=== PATIENT | female | born 1970 | race Native Hawaiian/Other Pacific Islander ===

== ENCOUNTER 2017-12-04 17:36 | Inpatient (IN) | payer MEDICAID ==
[2017-12-04 17:39] VITALS: BMI 20.3
--- NOTE | 2017-12-04 18:05 | C.PDOC ---
History Of Present Illness 47 y/o F transferred from [facility] for psych admission. Patient reports depression and arrived at [facility] in panic attack. Now states still feeling anxious and has mild headache. Denies fever, chills, chest pain, dyspnea, vomiting. Time Seen by Provider: 12/04/17 17:43 Chief Complaint (Nursing): Psychiatric Evaluation Past Medical History Vital Signs: Last Vital Signs Temp 99.2 F 12/04/17 17:40 Pulse 68 12/04/17 17:40 Resp 18 12/04/17 17:40 BP 105/69 12/04/17 17:40 Pulse Ox 98 12/04/17 17:40 - Medical History PMH: Anxiety, Depression, Post Traumatic Stress Disorder Family History: States: No Known Family Hx - Social History Hx Alcohol Use: Yes Hx Substance Use: No - Immunization History Hx Tetanus Toxoid Vaccination: No Hx Influenza Vaccination: No Hx Pneumococcal Vaccination: No Review Of Systems Except As Marked, All Systems Reviewed And Found Negative. Constitutional: Negative for: Fever Cardiovascular: Negative for: Chest Pain Physical Exam - Physical Exam Additional Physical Exam Comments: Gen: NAD Head: NC/AT Eyes: PERRL ENT: MMM Neck: Supple Chest: No tenderness CV: Regular rate Lungs: CTA b/l Abd: Soft, NT Back: No CVA tenderness Extremities: No edema Skin: No rash Neuro: Alert, no focal deficit ED Course And Treatment O2 Sat by Pulse Oximetry: 98 Disposition - Disposition Disposition: HOSPITALIZED Disposition Time: 17:43 Condition: STABLE - Clinical Impression Clinical Impression: Depression
[2017-12-04] MEDS ORDERED: Hydrocortisone 1% Cream (30 GM) TOP PRN (22:56)
--- NOTE | 2017-12-05 04:10 | PCM.BM ---
<Eladio Alvarado - Last Filed: 12/05/17 04:06> Treatment Plan Problems - Problems identified on initial assessmt Depression Date Initiated: 12/04/17 Time Initiated: 18:35 Assessment reference: NA Status: Active Alcohol Abuse Date Initiated: 12/04/17 Time Initiated: 18:35 Assessment reference: NA Status: Active Treatment assets and liabiliti Patient Assests: physically healthy Patient Liabilities: substance abuse (Alcohol ) - Milieu Protocol Maintain good personal hygiene: daily Encourage regular showers, daily Remind patient to perform daily oral care, every shift Assist patient to perform ADL's Conduct patient checks and document Observation sheet: Q15 minutes Maintain personal safety: every shift Educate patient to report safety concerns to staff, every shift Monitor environment for contraband/sharps Medication safety: Monitor for expected outcome, potential side effects: every shift, Assess barriers to learning: every shift, Assess readiness for medication education: every shift <Viridiana Martinez - Last Filed: 12/07/17 11:14> - Diagnosis (1) Depression Status: Acute Interventions: 12/07/17 11:14 * Assess/adjust medications daily and /or as needed * See patient on an individual basis 7x/week to assess symptoms of depression * Monitor for side effects & effectiveness of medications * (2) Alcohol use disorder, severe, dependence Status: Acute Interventions: 12/07/17 11:14 * Assess 7x/week regarding severity of withdrawal * Educate regarding risks, benefits, side effects and alternatives of medications * Use Motivational Interviewing for abstinence * Use CBT for relapse prevention * Medication management for withdrawal symptoms * Encourage medication assisted treatment * <Rolanda Reese - Last Filed: 12/07/17 15:03> Family Contact Family involvement: Patient does not wish Family/SO involvement Family contact: Patient declines to allow family contact at present - Goals for Treatment Patient goals for treatment: "I want to go to a rehab program." Discharge/Continuing Care - Education Needs Education Needs: Patient Medication, Patient Diagnosis/Disease Process, Patient Coping Skills, Patient Placement options, Patient Community resources - Discharge Discharge Criteria: Free of Suicidal thoughts, Normal sleep pattern, Ability to care for self, No longer exhibiting s/s of withdrawal, Reduction of target symptoms Discharge to:: Substance Abuse Rehab - Treatment Team Participation Discussed with Family/SO: No Was Patient/Family/SO present at Treatment Team Meeting: Yes
--- NOTE | 2017-12-05 12:00 | PCM.PSYCH ---
Initial Psychiatric Evaluation - Initial Psychiatric Evaluation Type of Admission: Voluntary Legal Status: Capacity Chief Complaint (in patient's own words): I was feeling depressed and suicidal.' History of Present Illness and Precipitating Events: This is a 47 years old, Female, who lives with her spouse, came to the ED for depressed mod and suicidal ideation. Patient denies any history of inpatient psychiatric hospitalizations, however, she reports h/o follow up with a psychiatrist in the past. Patient reports that she has been drinking increasing amounts since past few weeks. Patient reports drinking vodka 250-500 ml daily. She reports withdrawal symptoms including sweating, headaches, and anxiety. Pt also reports that, "I feel confused. I had a panic attack a couple of nights ago. The panic attack was caused by feeling to want to hurt myself. I feel worthless, and useless. I stayed with family in [place], and they kicked me out because they said I wasn't working hard enough. I came back to [place] but my Brother doesn't want me in his house either. I hear voices telling me to just kill myself, and end it. I think about suicide everyday, I have been thinking about it for the past two months everyday. Both the drinking and the thinking about suicide happened two months ago, I was very unhappy in [place], it all started when I moved there. I have no medical problems at all. I am healthy, never had a seizure". Patient BAL at [facility] [place] was 87. She reports depressed mood, at times feelings of hopelessness and helplessness and poor sleep and poor appetite. She denies any manic symptoms. She reports AH and paranoia. PMH: None reported Current Medications: Active Medications Generic Name Dose Route Start Last Admin Trade Name Freq PRN Reason Stop Dose Admin Chlordiazepoxide 25 mg 12/04/17 21:17 12/04/17 21:32 Librium PO 25 mg Q6H PRN Administration ETOH withdrawal Diphenhydramine HCl 25 mg 12/04/17 21:17 Benadryl PO Q8H PRN Anxiety Hydrocortisone 1 gm 12/04/17 22:56 Cortizone 1% Cream TOP Q6H PRN Itchiness Trazodone HCl 50 mg 12/04/17 22:00 12/04/17 21:32 Desyrel PO 50 mg HS JAMARI Administration Past Psychiatric History - Past Psychiatric History Previous Treatment History: None Pertinent Medical Hx (Current Medical&Sleep Prob, Allergies): Allergies Allergy/AdvReac Type Severity Reaction Status Date / Time cat dander Allergy Verified 12/04/17 17:39 DUST MITE Allergy Uncoded 12/04/17 17:39 Lorazepam [Ativan] 1 mg PO Q4H 12/04/17 Zolpidem [Ambien] 10 mg PO HS 12/04/17 Review of Systems - Review of Systems All systems: reviewed and no additional remarkable complaints except - Psychiatric Psychiatric: Anxiety, Auditory Hallucinations, Difficulty Concentrating, Paranoia, Suicidal Ideation Mental Status Examination - Personal Presentation Personal Presentation: Looks stated age - Affect Affect: Constricted, Depressed - Motor Activity Motor Activity: Calm - Reliability in Providing Information Reliability in Providing Information: Fair - Speech Speech: Organized - Mood Mood: Depressed, Anxious - Formal Thought Process Formal Thought Process: No Impairment - Hallucinations/Delusions Hallucinations: Auditory Delusions: Persecution - Obsessions/Compulsions Obsessions: No Compulsions: No - Cognitive Functions Orientation: Person, Place, Situation, Time Sensorium: Alert Attention/Concentration: Attentive Abstract Thinking: [place], As evidence by abstract perception of proverbs Estimate of Intelligence: Below average Judgement: Imparied, as evidence by: Poor judgement Memory: Recent intact, as evidence by: Ability to recall events of the day - Risk Risk: Suicidal, Withdrawal, Diminished functioning - Strength & Assets Inventory Strength & Assets Inventory: Family support DSM 5 DX - DSM 5 DSM 5 Diagnosis: Major depressive disorder recurrent severe without psychotic features. Alcohol use disorder severe Alcohol withdrawal - Recommended/Plan of Treatment Treatment Recommendations and Plan of Treatment: Major depressive disorder recurrent severe without psychotic features. CBT Psychoeducation Supportive therapy, group therapy Zoloft 50 mg by mouth daily Gabapentin for augmentation Trazodone for insomnia Hydroxyzine for anxiety Alcohol use disorder severe Alcohol withdrawal CBT Psychoeducation Supportive therapy, individual therapy Start librium taper MVI/Thiamine/Folic Acid
[2017-12-07] MEDS: Multiple Vitamins Tab PO SCH (12:23)
--- NOTE | 2017-12-08 01:03 | PCM.PYCHPN ---
Psychiatric Progress Note - Psychiatric Progress Note Patient seen today, length of contact: 15 min Patient Chief Complaint: I was feeling depressed and suicidal.' Problems Identified/Issues Discussed: Patient seen and evaluated, chart reviewed and discussed with the nurse. Pt reports depressed mood, feelings of hopelessness and helplessness. She remained isolated and withdrawn, and confined to her room. She denies any AVH or any paranoia. Patient is compliant with medications and denies any side effects. Symptoms are improving but pt needs more time to stabilize. Support and psychoeducation given. Medication Change: Yes Medical Record Reviewed: Yes Mental Status Examination - Cognitive Function Orientation: Person, Place, Situation, Time Memory: Intact Attention: WNL Concentration: Poor Association: WNL Fund of Knowledge: Poor - Mood Mood: Depressed, Anxious - Affect Affect: Constricted, Depressed - Speech Speech: Soft - Formal Thought Process Formal Thought Process: No Impairment - Suicidal Ideation Suicidal Ideation: No - Homicidal Ideation Homicidal Ideation: No Goal/Treatment Plan - Goal/Treatment Plan Need for Continued Stay: Severe depression anxiety, Severe functional impairment Progress Toward Problem(s) and Goals/Treatment Plan: Major depressive disorder recurrent severe without psychotic features. CBT Psychoeducation Supportive therapy, group therapy Zoloft 50 mg by mouth daily Gabapentin for augmentation Trazodone for insomnia Hydroxyzine for anxiety Alcohol use disorder severe Alcohol withdrawal CBT Psychoeducation Supportive therapy, individual therapy Start librium taper MVI/Thiamine/Folic Acid - Smoking Cessation Smoking Cessation Initiated: No
--- NOTE | 2017-12-08 01:04 | PCM.PYCHPN ---
Psychiatric Progress Note - Psychiatric Progress Note Patient seen today, length of contact: 15 min Patient Chief Complaint: I was feeling depressed .' Problems Identified/Issues Discussed: Patient seen and evaluated, chart reviewed and discussed with the nurse. She is still reporting withdrawal symptoms. Pt reports depressed mood, feelings of hopelessness and helplessness. She remained isolated and withdrawn, and confined to her room. She denies any AVH or any paranoia. Patient is compliant with medications and denies any side effects. Symptoms are improving but pt needs more time to stabilize. Support and psychoeducation given. Medication Change: Yes Medical Record Reviewed: Yes Mental Status Examination - Cognitive Function Orientation: Person, Place, Situation, Time Memory: Intact Attention: WNL Concentration: Poor Association: WNL Fund of Knowledge: Poor - Mood Mood: Depressed, Anxious - Affect Affect: Constricted, Depressed - Speech Speech: Soft - Formal Thought Process Formal Thought Process: No Impairment - Suicidal Ideation Suicidal Ideation: No - Homicidal Ideation Homicidal Ideation: No Goal/Treatment Plan - Goal/Treatment Plan Need for Continued Stay: Severe depression anxiety, Severe functional impairment Progress Toward Problem(s) and Goals/Treatment Plan: Major depressive disorder recurrent severe without psychotic features. CBT Psychoeducation Supportive therapy, group therapy Zoloft 50 mg by mouth daily Gabapentin for augmentation Trazodone for insomnia Hydroxyzine for anxiety Alcohol use disorder severe Alcohol withdrawal CBT Psychoeducation Supportive therapy, individual therapy Start librium taper MVI/Thiamine/Folic Acid
[2017-12-08] MEDS: Multiple Vitamins Tab PO SCH (10:56)
--- NOTE | 2017-12-08 16:38 | PCM.PYCHPN ---
Psychiatric Progress Note - Psychiatric Progress Note Patient seen today, length of contact: 15 min Patient Chief Complaint: I was feeling depressed and suicidal.' Problems Identified/Issues Discussed: Pt was evaluated at bedside. Chart was reviewed with nurse. Pt this morning reports that she would like to be transferred to the detox floor because she is going through withdrawal. Pt states that she has nausea, dizziness, shakes, insomnia, and hot flashes. On examination, these sxs are not evident. Pt remains quiet but does interact with others on the floor. She is cautious as she moves throughout the floor and is constantly searching for the physician so that she can be transferred. Pt denies S/I, H/I, A/H, V/H. Pt needs more time to stabilize. Medication Change: Yes Medical Record Reviewed: Yes Mental Status Examination - Cognitive Function Orientation: Person, Place, Situation, Time Memory: Intact Attention: WNL Concentration: Poor Association: WNL Fund of Knowledge: Poor - Mood Mood: Depressed, Anxious - Affect Affect: Constricted, Depressed - Speech Speech: Soft - Formal Thought Process Formal Thought Process: No Impairment - Suicidal Ideation Suicidal Ideation: No - Homicidal Ideation Homicidal Ideation: No Goal/Treatment Plan - Goal/Treatment Plan Need for Continued Stay: Severe depression anxiety, Severe functional impairment Progress Toward Problem(s) and Goals/Treatment Plan: Major depressive disorder recurrent severe without psychotic features. CBT Psychoeducation Supportive therapy, group therapy Zoloft 50 mg by mouth daily Gabapentin for augmentation Trazodone for insomnia Hydroxyzine for anxiety Alcohol use disorder severe Alcohol withdrawal CBT Psychoeducation Supportive therapy, individual therapy Start librium taper MVI/Thiamine/Folic Acid
[2017-12-09] MEDS: Multiple Vitamins Tab PO SCH (14:57)
[2017-12-10] MEDS: Multiple Vitamins Tab PO SCH (09:35)
--- NOTE | 2017-12-11 00:52 | PCM.PYCHPN ---
Psychiatric Progress Note - Psychiatric Progress Note Patient seen today, length of contact: 15 min Patient Chief Complaint: I m feeling much better.' Problems Identified/Issues Discussed: Patient seen and evaluated, chart reviewed and discussed with the nurse. Staff reports pt is improving. She reports improvement in her mood and withdrawal symptoms. She denies any AVH or any SI/HI. Patient is compliant with medications and denies any side effects. Symptoms are improving but need more time to stabilize. Support and psychoeducation given. Medication Change: Yes Medical Record Reviewed: Yes Mental Status Examination - Cognitive Function Orientation: Person, Place, Situation, Time Memory: Intact Attention: WNL Concentration: Poor Association: WNL Fund of Knowledge: Poor - Mood Mood: Depressed, Anxious - Affect Affect: Constricted, Depressed - Speech Speech: Soft - Formal Thought Process Formal Thought Process: No Impairment - Suicidal Ideation Suicidal Ideation: No - Homicidal Ideation Homicidal Ideation: No Goal/Treatment Plan - Goal/Treatment Plan Need for Continued Stay: Severe depression anxiety, Severe functional impairment Progress Toward Problem(s) and Goals/Treatment Plan: Major depressive disorder recurrent severe without psychotic features. CBT Psychoeducation Supportive therapy, group therapy Zoloft 100 mg by mouth daily Serquel 100 mg po qhs Remeon 15 mg po qhs Gabapentin for augmentation Trazodone for insomnia Hydroxyzine for anxiety Alcohol use disorder severe Alcohol withdrawal CBT Psychoeducation Supportive therapy, individual therapy librium taper MVI/Thiamine/Folic Acid - Smoking Cessation Smoking Cessation Initiated: No
--- NOTE | 2017-12-11 00:53 | PCM.PYCHPN ---
Psychiatric Progress Note - Psychiatric Progress Note Patient seen today, length of contact: 15 min Patient Chief Complaint: I m feeling little better.' Problems Identified/Issues Discussed: Patient seen and evaluated, chart reviewed and discussed with the nurse. Pt reports some improvement in her depressed mood, and withdrawal symptoms. She remained isolated and withdrawn, and confined to her room. She denies any AVH or any paranoia. Patient is compliant with medications and denies any side effects. Symptoms are improving but pt needs more time to stabilize. Support and psychoeducation given. Medication Change: Yes Medical Record Reviewed: Yes Mental Status Examination - Cognitive Function Orientation: Person, Place, Situation, Time Memory: Intact Attention: WNL Concentration: Poor Association: WNL Fund of Knowledge: Poor - Mood Mood: Depressed, Anxious - Affect Affect: Constricted, Depressed - Speech Speech: Soft - Formal Thought Process Formal Thought Process: No Impairment - Suicidal Ideation Suicidal Ideation: No - Homicidal Ideation Homicidal Ideation: No Goal/Treatment Plan - Goal/Treatment Plan Need for Continued Stay: Severe depression anxiety, Severe functional impairment Progress Toward Problem(s) and Goals/Treatment Plan: Major depressive disorder recurrent severe without psychotic features. CBT Psychoeducation Supportive therapy, group therapy Zoloft 50 mg by mouth daily Gabapentin for augmentation Trazodone for insomnia Hydroxyzine for anxiety Alcohol use disorder severe Alcohol withdrawal CBT Psychoeducation Supportive therapy, individual therapy Start librium taper MVI/Thiamine/Folic Acid
[2017-12-11] MEDS: Multiple Vitamins Tab PO SCH (10:14)
[2017-12-12] MEDS: Multiple Vitamins Tab PO SCH (09:10)
--- NOTE | 2017-12-12 16:22 | PCM.PYCHPN ---
Psychiatric Progress Note - Psychiatric Progress Note Patient seen today, length of contact: 15 min Patient Chief Complaint: I'm feeling much better. Can I go home today. Problems Identified/Issues Discussed: Patient seen, chart reviewed, case discussed with the staff. Issues related to illness and treatment were discussed with the patient and staff. Reported compliant with treatment with no adverse affects. Tolerating treatment very well. Calm and cooperative. Mood reported as good. Affect appropriate. Aftercare discussed with the patient. Patient was awake, alert and oriented 3. Denied any delusions, auditory or visual hallucinations, suicidal ideations or homicidal ideations at the time of evaluation. Medical Problems: None reported Diagnostic Results: Reviewed DSM 5 Symptoms Update: Some improvement with treatment Medication Change: No Medical Record Reviewed: Yes Mental Status Examination - Cognitive Function Orientation: Person, Place, Situation, Time Memory: Intact Attention: WNL Concentration: WNL Association: [facility] Fund of Knowledge: [facility] Decription of patient's judgement and insights: Fair - Mood Mood: Depressed (Much less than before) - Affect Affect: Depressed - Speech Speech: Soft - Formal Thought Process Formal Thought Process: No Impairment Psychotic Thoughts and Behaviors: None - Suicidal Ideation Suicidal Ideation: No - Homicidal Ideation Homicidal Ideation: No Goal/Treatment Plan - Goal/Treatment Plan Need for Continued Stay: Remain at risks for inpatient hospitalization, Discharge may exacerbated symptoms, Severe functional impairment Progress Toward Problem(s) and Goals/Treatment Plan: Patient education. Supportive therapy. Continue treatment as before. Estimated Date of D/C: 12/14/17 - Smoking Cessation Smoking Cessation Initiated: Yes
[2017-12-13 06:56] VITALS: O2SAT 98
[2017-12-13] MEDS: Multiple Vitamins Tab PO SCH (10:12)
--- NOTE | 2017-12-13 15:57 | PCM.PYCHPN ---
Psychiatric Progress Note - Psychiatric Progress Note Patient seen today, length of contact: 15 min Patient Chief Complaint: I'm feeling much better. Problems Identified/Issues Discussed: Patient seen, chart reviewed, case discussed with the staff. Issues related to illness and treatment were discussed with the patient and staff. Reported compliant with treatment with no adverse affects. Tolerating treatment very well. Calm and cooperative. Mood reported as good. Affect appropriate. Aftercare discussed with the patient. Patient was awake, alert and oriented 3. Discussed with patient about unit rules. Patient agreed. Denied any delusions, auditory or visual hallucinations, suicidal ideations or homicidal ideations at the time of evaluation. Medical Problems: None reported Diagnostic Results: Reviewed DSM 5 Symptoms Update: Improving with treatment. Medication Change: No Medical Record Reviewed: Yes Mental Status Examination - Cognitive Function Orientation: Person, Place, Situation, Time Memory: Intact Attention: WNL Concentration: WNL Association: [facility] Fund of Knowledge: [facility] Decription of patient's judgement and insights: Fair - Mood Mood: Depressed (Much less than before) - Affect Affect: Depressed - Speech Speech: Soft - Formal Thought Process Formal Thought Process: No Impairment Psychotic Thoughts and Behaviors: None - Suicidal Ideation Suicidal Ideation: No - Homicidal Ideation Homicidal Ideation: No Goal/Treatment Plan - Goal/Treatment Plan Need for Continued Stay: Remain at risks for inpatient hospitalization, Discharge may exacerbated symptoms, Severe functional impairment Progress Toward Problem(s) and Goals/Treatment Plan: Patient education. Supportive therapy. Continue treatment as before. Estimated Date of D/C: 12/14/17 - Smoking Cessation Smoking Cessation Initiated: Yes
--- NOTE | 2017-12-13 22:46 | PCM.PYCHPN ---
Psychiatric Progress Note - Psychiatric Progress Note Patient seen today, length of contact: 15 min Patient Chief Complaint: I m feeling much better.' Problems Identified/Issues Discussed: Patient seen and evaluated, chart reviewed and discussed with the nurse. Staff reports pt is improving. She reports improvement in her mood and withdrawal symptoms. She denies any AVH or any SI/HI. Patient is compliant with medications and denies any side effects. Symptoms are improving but need more time to stabilize. Support and psychoeducation given. Medication Change: No Medical Record Reviewed: Yes Mental Status Examination - Cognitive Function Orientation: Person, Place, Situation, Time Memory: Intact Attention: WNL Concentration: WNL Association: WNL Fund of Knowledge: WNL - Mood Mood: Depressed (Much less than before) - Affect Affect: Depressed - Speech Speech: Soft - Formal Thought Process Formal Thought Process: No Impairment - Suicidal Ideation Suicidal Ideation: No - Homicidal Ideation Homicidal Ideation: No Goal/Treatment Plan - Goal/Treatment Plan Need for Continued Stay: Remain at risks for inpatient hospitalization, Discharge may exacerbated symptoms, Severe functional impairment Progress Toward Problem(s) and Goals/Treatment Plan: Major depressive disorder recurrent severe without psychotic features. CBT Psychoeducation Supportive therapy, group therapy Zoloft 100 mg by mouth daily Serquel 100 mg po qhs Remeon 15 mg po qhs Gabapentin for augmentation Trazodone for insomnia Hydroxyzine for anxiety Alcohol use disorder severe Alcohol withdrawal CBT Psychoeducation Supportive therapy, individual therapy librium taper MVI/Thiamine/Folic Acid Estimated Date of D/C: 12/14/17
[2017-12-14 06:28] VITALS: BP 100/70; PULSE 77; RESP 20; TEMP 98.4
[2017-12-14] MEDS: Multiple Vitamins Tab PO SCH (09:29)
--- NOTE | 2017-12-14 10:10 | PCM.PYCHDC ---
Mental Status Examination - Mental Status Examination Orientation: Person, Place, Situation, Time Memory: Intact Mood: Neutral Affect: Constricted Speech: Soft Attention: WNL Concentration: WNL Association: WNL Fund of Knowledge: WNL Formal Thought Process: No Impairment Description of patient's judgement and insight: good, fair Psychotic Thoughts and Behaviors: denies any AVH Suicidal Ideation: No Current Homicidal Ideation?: No Discharge Summary - Discharge Note Reason for Hospitalization: This is a 47 years old, Female, who lives with her spouse, came to the ED for depressed mod and suicidal ideation. Patient denies any history of inpatient psychiatric hospitalizations, however, she reports h/o follow up with a psychiatrist in the past. Patient reports that she has been drinking increasing amounts since past few weeks. Patient reports drinking vodka 250-500 ml daily. She reports withdrawal symptoms including sweating, headaches, and anxiety. Pt also reports that, "I feel confused. I had a panic attack a couple of nights ago. The panic attack was caused by feeling to want to hurt myself. I feel worthless, and useless. I stayed with family in [place], and they kicked me out because they said I wasn't working hard enough. I came back to [place] but my Brother doesn't want me in his house either. I hear voices telling me to just kill myself, and end it. I think about suicide everyday, I have been thinking about it for the past two months everyday. Both the drinking and the thinking about suicide happened two months ago, I was very unhappy in [place], it all started when I moved there. I have no medical problems at all. I am healthy, never had a seizure". Patient BAL at [facility] was 87. She reports depressed mood, at times feelings of hopelessness and helplessness and poor sleep and poor appetite. She denies any manic symptoms. She reports AH and paranoia. Consultations:: List each consultation separately and include: 1. Reason for request. 2. Findings. 3. Follow-up Summary of Hospital Course include:: 1. Description of specific treatment plan utilized for patients during their course of treatmen. 2. Summarize the time- course for resolution of acute symptoms and/or regressed behaviors. 3. Describe issues identified and worked on during hospitalization. 4. Describe medication utilized. 5. Describe medical problems identified and treated. 6. Reassessment of suicide risk Summary of Hospital Course: During the course of her stay, patient (pt) started progressively improving and no longer remained irritable, depressed, and suicidal. Her mood and anxiety were improved and she started attending groups and meetings and started socializing. Patient denied any feelings of hopelessness, helplessness, and worthlessness, denied any problem with the sleep or appetite, denied suicidal ideation or homicidal ideation. Pt denied any auditory or visual hallucinations. She denied any withdrawal symptoms. Pt was treated with medications along with supportive therapy, milieu therapy and group therapy. Some changes were made in her current medications and patient was discharged on following medications. She tolerated these medications very well and denied any side effects. - Diagnosis (1) Depression Status: Acute (2) Alcohol use disorder, severe, dependence Status: Acute - Final Diagnosis (DSM 5) Condition upon Discharge: STABLE DSM 5: Major depressive disorder recurrent severe without psychotic features. Alcohol use disorder severe Alcohol withdrawal Disposition: HOME/ ROUTINE Follow-up Treatment Plan: Followup: She was discharged to the [facility]. Education: Pt was educated and counseled about the risks and benefits of taking and not taking medications. Pt was educated and counseled about the risks of drinking and abusing drugs. Pt was educated and counseled to go to the ER or call 911 if pt develop suicidal ideation or homicidal ideation, worsening of symptoms or severe side effects of the meds. Prescriptions/Medication Reconciliation: Gabapentin [Neurontin] 300 mg PO BID #60 cap Mirtazapine [Remeron] 15 mg PO HS #60 tab QUEtiapine [SEROquel] 50 mg PO HS #30 tab Sertraline [Zoloft] 100 mg PO DAILY #30 tab - Smoking Cessation Smoking Cessation Medication prescribed: No - Antipsychotic Medications Pt discharged on 2 or more routine antipsychotic medications: No
== END 2017-12-14 10:40 | disposition home or self-care (01) | DRG 885 ==
LOC: C.ER 17:36 → C.5E 17:43
PROVIDERS: ADMIT Psychiatry & Neurology Psychiatry; ATTEND Psychiatry & Neurology Psychiatry
PROC: GZ56ZZZ Individual Psychotherapy, Supportive (ICD-10-PCS; principal; 2017-12-04)
DX: F33.2 Major depressive disorder, recurrent severe without psychotic features (principal); R45.851 Suicidal ideations; F10.239 Alcohol dependence with withdrawal, unspecified; F41.0 Panic disorder [episodic paroxysmal anxiety]; G47.00 Insomnia, unspecified; F43.10 Post-traumatic stress disorder, unspecified; N95.1 Menopausal and female climacteric states; F22 Delusional disorders

== ENCOUNTER 2017-12-16 02:45 | Inpatient (IN) | payer MEDICAID ==
[2017-12-16 02:45] VITALS: BMI 20.3
--- NOTE | 2017-12-16 03:19 | C.PDOC ---
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 Denies any suicidal or homicidal ideation Time Seen by Provider: 12/16/17 03:18 Chief Complaint (Nursing): Substance Abuse History/Exam Limitations: no limitations Onset/Duration Of Symptoms: Hrs Current Symptoms Are (Timing): Still Present Suicide/Self Injury Attempted (Context): Other Modifying Factor(s): Alcohol Severity: Moderate Pain Scale Rating Of: 4 Associated Symptoms: denies: Anxiety Involuntary Hold By: None Recent travel outside of the [place]: No Additional History Per: Patient Past Medical History Reviewed: Historical Data, Nursing Documentation, Vital Signs Vital Signs: Last Vital Signs Temp 98.5 F 12/16/17 03:02 Pulse 87 12/16/17 03:02 Resp 14 12/16/17 03:02 BP 113/79 12/16/17 03:02 Pulse Ox 96 12/16/17 03:22 - Medical History PMH: Anxiety, Depression, Post Traumatic Stress Disorder - [facility] INDIVIDUAL PSYCHOTHERAPY, SUPPORTIVE (12/04/17) Family History: States: No Known Family Hx - Social History Hx Alcohol Use: Yes Hx Substance Use: Yes - Immunization History Hx Tetanus Toxoid Vaccination: No Hx Influenza Vaccination: No Hx Pneumococcal Vaccination: No Review Of Systems Constitutional: Negative for: Fever, Chills ENT: Negative for: Throat Pain Cardiovascular: Negative for: Chest Pain Respiratory: Negative for: Shortness of Breath Gastrointestinal: Negative for: Abdominal Pain Genitourinary: Negative for: Dysuria Musculoskeletal: Negative for: Back Pain Skin: Negative for: Rash Neurological: Negative for: Weakness Psych: Negative for: Anxiety Physical Exam - Physical Exam Appears: Non-toxic, No Acute Distress Skin: Warm, Dry Head: Normacephalic Eye(s): bilateral: Normal Inspection Oral Mucosa: Moist Neck: Supple Chest: Symmetrical Cardiovascular: Rhythm Regular Respiratory: No Rales, No Rhonchi, No Wheezing Gastrointestinal/Abdominal: Soft, No Tenderness Back: Normal Inspection Extremity: Normal ROM Extremity: Bilateral: Atraumatic Neurological/Psych: Oriented x3 Gait: Steady ED Course And Treatment - Laboratory Results Result Diagrams: 12/16/17 03:53 12/16/17 03:53 O2 Sat by Pulse Oximetry: 96 Pulse Ox Interpretation: Normal Disposition Discussed With : Juan Carlos Stephens Comment: accepted the pt on his service and took over the care at 5:44 AM Doctor Will See Patient In The: Hospital Counseled Patient/Family Regarding: Studies Performed, Diagnosis - Disposition Disposition: HOSPITALIZED Disposition Time: 03:18 Condition: FAIR Forms: [facility] ([place]) - POA Present On Arrival: None - Clinical Impression Clinical Impression: Depression, Alcohol use disorder, severe, dependence Decision To Admit - Pt Status Changed To: Hospital Disposition Of: Inpatient - Admit Certification Admit to Inpatient:: After my assessment, the patient will require hospitalization for at least two midnights. This is because of the severity of symptoms shown, intensity of services needed, and/or the medical risk in this patient being treated as an outpatient. - InPatient: Physician Admission Certification: I certify that this patient requires 2 or more midnights of care for the following reason:: After my assessment, the patient will require hospitalization for at least two midnights. This is because of the severity of symptoms shown, intensity of services needed, and/or the medical risk in this patient being treated as an outpatient. - . Bed Request Type: Psychiatry Admitting Physician: Juan Carlos Stephens Patient Diagnosis: Depression, Alcohol use disorder, severe, dependence
[2017-12-16 03:56] LABS: HCG,QUALITATIVE URINE NEGATIVE (NEGATIVE)
[2017-12-16 03:57] LABS: SQUAMOUS EPITHIAL 1 /hpf (0-5); URINE BILIRUBIN NEGATIVE (NEGATIVE); URINE BLOOD NEGATIVE (NEGATIVE); URINE CLARITY Clear (Clear); URINE COLOR Yellow (YELLOW); URINE GLUCOSE (UA) NORMAL (Normal); URINE LEUKOCYTE ESTERASE 1+ Leu/uL (Negative); URINE PROTEIN NEGATIVE (NEGATIVE); URINE UROBILINOGEN NORMAL mg/dL (0.2-1.0)
[2017-12-16 03:58] LABS: BASO # 0.1 K/uL (0.0-0.2); BASO % 0.8 % (0.0-2.0); EOS # 0.1 K/uL (0.0-0.7); HEMOGLOBIN 12.5 g/dL (11.0-16.0); LYMPH # 2.5 K/uL (1.0-4.3); LYMPH % 36.2 % (20.0-40.0); MEAN CELL VOLUME 89.9 fL (81.0-99.0); MEAN CORPUSCULAR HEMOGLOBIN 31.5 pg (27.0-31.0); MEAN CORPUSCULAR HGB CONC 35.1 g/dL (33.0-37.0); MONO # 0.7 K/uL (0.0-0.8); MONO % 10.4 % (0.0-10.0); NEUT # 3.5 K/uL (1.8-7.0); NEUT % 50.6 % (50.0-75.0); RBC 3.95 Mil/uL (3.80-5.20); RED CELL DISTRIBUTION WIDTH 13.5 % (11.5-14.5); WHITE BLOOD COUNT 6.9 K/uL (4.8-10.8)
[2017-12-16 04:22] LABS: ALB/GLOB RATIO 1.4 (1.0-2.1); ALBUMIN 4.2 g/dL (3.5-5.0); ALT/SGPT 64 U/L (9-52); AST/SGOT 48 U/L (14-36); BLOOD UREA NITROGEN 12 mg/dL (7-17); CALCIUM 8.5 mg/dl (8.6-10.4); GFR AFRICAN-AMERICAN > 60; GFR NON-AFRICAN AMERICAN > 60
[2017-12-16 05:33] LABS: BARBITURATES, UR NEGATIVE (NEGATIVE); OPIATES, UR NEGATIVE (NEGATIVE); PHENCYCLIDINE, UR NEGATIVE (NEGATIVE)
[2017-12-16 06:53] LABS: BENZODIAZEPINES, UR POSITIVE (NEGATIVE)
--- NOTE | 2017-12-16 12:35 | PCM.BM ---
<Christi Mills - Last Filed: 12/16/17 12:33> Treatment Plan Problems - Problems identified on initial assessmt Suicidal Ideations Date Initiated: 12/16/17 Time Initiated: 12:34 Assessment reference: NA ETOH Abuse Date Initiated: 12/16/17 Time Initiated: 12:34 Assessment reference: NA Status: Active Treatment assets and liabiliti Patient Assests: cooperative, self-reliant, physically healthy, negotiates basic needs, cognitively intact Patient Liabilities: live alone, financial problems, poor support system, relationship conflicts, substance abuse - Milieu Protocol Maintain good personal hygiene: daily Encourage regular showers, daily Remind patient to perform daily oral care, daily Assist patient to perform ADL's Maintain personal safety: every shift Educate patient to report safety concerns to staff, every shift Monitor environment for contraband/sharps Medication safety: Monitor for expected outcome, potential side effects: every shift, Assess barriers to learning: every shift, Assess readiness for medication education: every shift <Seema Bustillo - Last Filed: 12/18/17 11:16> Family Contact Family involvement: Family/SO is involved Family contact: Patient declines to allow family contact at present - Goals for Treatment Patient goals for treatment: "I want to go home." Discharge/Continuing Care - Education Needs Education Needs: Patient Medication, Patient Coping Skills - Discharge Discharge Criteria: Tolerates medication w/o severe side effects, Reduction of target symptoms Discharge to:: Home, With Family - Treatment Team Participation Discussed with Family/SO: No Was Patient/Family/SO present at Treatment Team Meeting: Yes <Douglas Garcia - Last Filed: 12/19/17 10:14> - Diagnosis (1) Alcohol use disorder, severe, dependence Status: Acute Interventions: 12/19/17 10:13 * Assess 7x/week regarding severity of withdrawal * Educate regarding risks, benefits, side effects and alternatives of medications * Use Motivational Interviewing for abstinence * Use CBT for relapse prevention * Medication management for withdrawal symptoms * Encourage medication assisted treatment * (2) Depression Status: Acute Interventions: 12/19/17 10:13 * Assess/adjust medications daily and /or as needed * See patient on an individual basis 7x/week to assess symptoms of depression * Monitor for side effects & effectiveness of medications *
--- NOTE | 2017-12-17 10:52 | PCM.PSYCH ---
Initial Psychiatric Evaluation - Initial Psychiatric Evaluation Type of Admission: Voluntary Legal Status: Capacity Chief Complaint (in patient's own words): I relapsed on drinking.' History of Present Illness and Precipitating Events: This is 47 yo female of [place] decent came to the ED with depressed mood and suicidal ideation. Write is familiar with the patient. She was just discharge from almost 2-3 days ago. As per the patient she was relapsed on drinking soon after the discharge. Pt's initial IOJ=249. Pt currently reports that she is drinking ETOH everyday. She reports, 'I feel like I'm out of control, and I would like to stop ;" Pt relapsed back onto ETOH the same day she was discharged from [facility] (); Pt has been consuming approximately "a bottle" of ETOH daily; Yesterday, Pt consumed "a 6pack and a bottle of wine"; Pt has been consuming ETOH since age 21. Pt also reported having plans to either run into on-coming traffic, jump from a bridge, or be struck by an on-coming train. Pt would also deny experiencing any recent command "voices"; Nevertheless, Pt did admit to on- going symptoms of depression, which she described as: "Mood swings;" They go up and down (from "euphoria/happiness" to "sadness/insecurity/a little angry")"; Pt also reported recent symptoms of anhedonia, stating: "I haven't been doing too much" and sleep disturbance; Pt denied having a prior hx of suicide attempts ; Pt admits she did not fill the prescription she received upon discharge from [address] [place] [address]; Pt also reported having an outpt appointment scheduled for "the middle of January"; Pt currently lives with her brother and his family; It should be noted: Pt did admit to having a gambling addiction, but refused to disclose any details regarding same. Current Medications: Active Medications Generic Name Dose Route Start Last Admin Trade Name Dorothea PRN Reason Stop Dose Admin Gabapentin 300 mg 12/17/17 10:00 12/17/17 10:03 Neurontin PO 300 mg BID JAMARI Administration Mirtazapine 15 mg 12/16/17 22:00 12/16/17 21:52 Remeron PO 15 mg HS JAMARI Administration Pneumococcal Polyvalent Vaccine 0.5 ml 12/19/17 15:00 Pneumovax 23 Vaccine IM 12/19/17 15:01 .ONCE ONE Quetiapine Fumarate 25 mg 12/16/17 22:00 12/16/17 21:52 Seroquel PO 25 mg HS JAMARI Administration Past Psychiatric History - Past Psychiatric History Previous Treatment History: Inpatient Pertinent Medical Hx (Current Medical&Sleep Prob, Allergies): Allergies Allergy/AdvReac Type Severity Reaction Status Date / Time cat dander Allergy Verified 12/04/17 17:39 DUST MITE Allergy Uncoded 12/04/17 17:39 Lorazepam [Ativan] 1 mg PO Q8H 12/04/17 Zolpidem [Ambien] 10 mg PO HS 12/04/17 Gabapentin [Neurontin] 300 mg PO BID #60 cap 12/14/17 Mirtazapine [Remeron] 15 mg PO HS #60 tab 12/14/17 QUEtiapine [SEROquel] 50 mg PO HS #30 tab 12/14/17 Sertraline [Zoloft] 100 mg PO DAILY #30 tab 12/14/17 Review of Systems - Review of Systems All systems: reviewed and no additional remarkable complaints except - Psychiatric Psychiatric: Anxiety, Auditory Hallucinations, Irritability, Suicidal Ideation Mental Status Examination - Personal Presentation Personal Presentation: Looks stated age - Affect Affect: Constricted, Depressed - Motor Activity Motor Activity: Calm - Reliability in Providing Information Reliability in Providing Information: Fair - Speech Speech: Organized - Mood Mood: Depressed, Anxious - Formal Thought Process Formal Thought Process: No Impairment - Obsessions/Compulsions Obsessions: No Compulsions: No - Cognitive Functions Orientation: Person, Place, Situation, Time Sensorium: Alert Attention/Concentration: Attentive Abstract Thinking: [place] Estimate of Intelligence: Below average Judgement: Imparied, as evidence by: Poor judgement, Imparied, as evidence by: Lack of insight into illness - Risk Risk: Suicidal, Withdrawal, Diminished functioning - Strength & Assets Inventory Strength & Assets Inventory: Family support DSM 5 DX - DSM 5 DSM 5 Diagnosis: Major depressive disorder recurrent severe with psychotic features Alcohol use disorder severe Alcohol withdrawal - Recommended/Plan of Treatment Treatment Recommendations and Plan of Treatment: Major depressive disorder recurrent severe with psychotic features Alcohol use disorder severe Alcohol withdrawal CBT Psychoeducation Supportive therapy, group therapy Seroque 25 mg PO QHS Mirtazapine 30 mg po qhs Gabapentin for augmentation Hydroxyzine for anxiety librium prn MVI/Thiamine/Folic Acid
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
[2017-12-19] MEDS ORDERED: Pneumococcal 23-Valent Vaccine IM ONE (15:00)
--- NOTE | 2017-12-19 21:25 | PCM.PYCHPN ---
Psychiatric Progress Note - Psychiatric Progress Note Patient seen today, length of contact: 15 MIN Patient Chief Complaint: I'M ANXIOUS Problems Identified/Issues Discussed: PT SEEN AND EXAMINED DISCUSSED WITH STAFF DISCUSSED WITH PT CAUSES OF ANXIETY AND HOW IT IS DIFFICULT TO SEPARATE DEPRESSION FROM ANXIETY AT TIMES Medical Problems: NONE NOTED OR REPORTED Diagnostic Results: REVIEWED Medication Change: Yes (INCREASE NEURONTIN) Medical Record Reviewed: Yes Mental Status Examination - Cognitive Function Orientation: Place, Situation Memory: Intact Attention: WNL Association: WNL Fund of Knowledge: WNL - Mood Mood: Depressed, Anxious - Affect Affect: Blunted, Depressed - Speech Speech: Appropriate - Formal Thought Process Formal Thought Process: No Impairment - Suicidal Ideation Suicidal Ideation: No - Homicidal Ideation Homicidal Ideation: No Goal/Treatment Plan - Goal/Treatment Plan Need for Continued Stay: Discharge may exacerbated symptoms, Severe functional impairment Progress Toward Problem(s) and Goals/Treatment Plan: MDD REMERON NEURONTIN GROUP [facility] RECREATIONAL THERAPY SUPPORTIVE PSYCHOTHERAPY Estimated Date of D/C: 12/21/17 - Smoking Cessation Smoking Cessation Initiated: No
[2017-12-20 06:30] VITALS: RESP 20
--- NOTE | 2017-12-21 00:26 | PCM.PYCHPN ---
Psychiatric Progress Note - Psychiatric Progress Note Patient seen today, length of contact: 15 MIN Patient Chief Complaint: I AM ANXIOUS ABOUT THE FUTURE! Problems Identified/Issues Discussed: PT SEEN AND EXAMINED DISCUSSED WITH STAFF DISCUSSED WITH PT CAUSES OF ANXIETY AND AFTER CARE PLANS FOR A REHAB Medical Problems: NONE NOTED OR REPORTED Diagnostic Results: REVIEWED Medication Change: No Medical Record Reviewed: Yes Mental Status Examination - Cognitive Function Orientation: Person, Place, Situation, Time Memory: Intact Attention: WNL Concentration: WNL Association: WNL Fund of Knowledge: WNL - Mood Mood: Anxious - Affect Affect: Broad - Speech Speech: Appropriate - Formal Thought Process Formal Thought Process: No Impairment - Suicidal Ideation Suicidal Ideation: No - Homicidal Ideation Homicidal Ideation: No Goal/Treatment Plan - Goal/Treatment Plan Need for Continued Stay: Discharge may exacerbated symptoms, Severe functional impairment Progress Toward Problem(s) and Goals/Treatment Plan: MDD REMERON NEURONTIN GROUP [facility] RECREATIONAL THERAPY SUPPORTIVE PSYCHOTHERAPY Estimated Date of D/C: 12/21/17 - Smoking Cessation Smoking Cessation Initiated: No
[2017-12-21 06:07] VITALS: BP 96/61; PULSE 51; TEMP 98.5; O2SAT 95
--- NOTE | 2017-12-21 10:13 | PCM.PYCHDC ---
Mental Status Examination - Mental Status Examination Orientation: Person, Place, Situation, Time Memory: Intact Mood: Neutral Affect: Constricted Speech: Soft Attention: WNL Concentration: WNL Association: WNL Fund of Knowledge: WNL Formal Thought Process: No Impairment Description of patient's judgement and insight: good, fair Psychotic Thoughts and Behaviors: denies any AVH Suicidal Ideation: No Current Homicidal Ideation?: No Discharge Summary - Discharge Note Reason for Hospitalization: This is 47 yo female of [place] decent came to the ED with depressed mood and suicidal ideation. Write is familiar with the patient. She was just discharge from almost 2-3 days ago. As per the patient she was relapsed on drinking soon after the discharge. Pt's initial DBS=174. Pt currently reports that she is drinking ETOH everyday. She reports, 'I feel like I'm out of control, and I would like to stop ;" Pt relapsed back onto ETOH the same day she was discharged from [facility] (); Pt has been consuming approximately "a bottle" of ETOH daily; Yesterday, Pt consumed "a 6pack and a bottle of wine"; Pt has been consuming ETOH since age 21. Pt also reported having plans to either run into on-coming traffic, jump from a bridge, or be struck by an on-coming train. Pt would also deny experiencing any recent command "voices"; Nevertheless, Pt did admit to on- going symptoms of depression, which she described as: "Mood swings;" They go up and down (from "euphoria/happiness" to "sadness/insecurity/a little angry")"; Pt also reported recent symptoms of anhedonia, stating: "I haven't been doing too much" and sleep disturbance; Pt denied having a prior hx of suicide attempts ; Pt admits she did not fill the prescription she received upon discharge from [address] [place] [address]; Pt also reported having an outpt appointment scheduled for "the middle of January"; Pt currently lives with her brother and his family; It should be noted: Pt did admit to having a gambling addiction, but refused to disclose any details regarding same. Consultations:: List each consultation separately and include: 1. Reason for request. 2. Findings. 3. Follow-up Summary of Hospital Course include:: 1. Description of specific treatment plan utilized for patients during their course of treatmen. 2. Summarize the time- course for resolution of acute symptoms and/or regressed behaviors. 3. Describe issues identified and worked on during hospitalization. 4. Describe medication utilized. 5. Describe medical problems identified and treated. 6. Reassessment of suicide risk Summary of Hospital Course: During the course of her stay, patient (pt) started progressively improving and no longer remained irritable, depressed, and suicidal. Her mood and anxiety were improved and she started attending groups and meetings and started socializing. Patient denied any feelings of hopelessness, helplessness, and worthlessness, denied any problem with the sleep or appetite, denied suicidal ideation or homicidal ideation. Pt denied any auditory or visual hallucinations. She denied any withdrawal symptoms. Pt was treated with medications along with supportive therapy, milieu therapy and group therapy. Some changes were made in her current medications and patient was discharged on following medications. She tolerated these medications very well and denied any side effects. - Final Diagnosis (DSM 5) Condition upon Discharge: FAIR DSM 5: Antisocial personality disorder Borderline personality disorder Major depressive disorder recurrent severe with psychotic features Alcohol use disorder severe Alcohol withdrawal Disposition: HOME/ ROUTINE Follow-up Treatment Plan: Followup: She was discharged to the [facility], [facility]. Education: Pt was educated and counseled about the risks and benefits of taking and not taking medications. Pt was educated and counseled about the risks of drinking and abusing drugs. Pt was educated and counseled to go to the ER or call 911 if pt develop suicidal ideation or homicidal ideation, worsening of symptoms or severe side effects of the meds. Prescriptions/Medication Reconciliation: Gabapentin [Neurontin] 300 mg PO TID #90 cap Mirtazapine [Remeron] 30 mg PO HS #30 tab QUEtiapine [Seroquel] 25 mg PO HS #30 tab - Smoking Cessation Smoking Cessation Medication prescribed: No - Antipsychotic Medications Pt discharged on 2 or more routine antipsychotic medications: No
== END 2017-12-21 12:45 | disposition home or self-care (01) | DRG 885 ==
LOC: C.ER 02:45 → C.9E 05:43 → C.5E 12:19
PROC: GZHZZZZ Group Psychotherapy (ICD-10-PCS; principal; 2017-12-16)
PROC: GZ56ZZZ Individual Psychotherapy, Supportive (ICD-10-PCS; 2017-12-16)
DX: F33.3 Major depressive disorder, recurrent, severe with psychotic symptoms (principal); R45.851 Suicidal ideations; F10.230 Alcohol dependence with withdrawal, uncomplicated; F43.10 Post-traumatic stress disorder, unspecified; F60.3 Borderline personality disorder; F10.220 Alcohol dependence with intoxication, uncomplicated; Y90.6 Blood alcohol level of 120-199 mg/100 ml; F19.10 Other psychoactive substance abuse, uncomplicated

== ENCOUNTER 2017-12-22 21:59 | Emergency (ER) | payer SELFPAY ==
[2017-12-22 21:59] VITALS: BMI 20.3
[2017-12-22 22:22] VITALS: RESP 18; TEMP 98; O2SAT 98
--- NOTE | 2017-12-22 22:49 | C.PDOC ---
History Of Present Illness 47yo female, comes to ER stating she had a panic attack earlier. Patient reports she drinks a pint of vodka each day and earlier today while drinking, she felt a panic attack. Currently, she reports she "feels better." Denies any fever, chills, chest pain, nausea, vomiting or shortness of breath. Patient also denies any suicidal or homicidal ideation. Time Seen by Provider: 12/22/17 22:48 Chief Complaint (Nursing): Substance Abuse History Per: Patient History/Exam Limitations: no limitations Current Symptoms Are (Timing): Gone Additional History Per: Patient Past Medical History Reviewed: Historical Data, Nursing Documentation, Vital Signs Vital Signs: Last Vital Signs Temp 98 F 12/22/17 22:17 Pulse 92 H 12/22/17 22:17 Resp 18 12/22/17 22:17 BP 128/85 12/22/17 22:17 Pulse Ox 98 12/22/17 23:23 - Medical History PMH: Anxiety, Depression, Post Traumatic Stress Disorder Denies: Diabetes, Hepatitis, HIV, HTN, Seizures, Sexually Transmitted Disease Surgical History: No Surg Hx - [facility] GROUP PSYCHOTHERAPY (12/16/17) INDIVIDUAL PSYCHOTHERAPY, SUPPORTIVE (12/16/17) Family History: States: No Known Family Hx - Social History Hx Alcohol Use: Yes Hx Substance Use: Yes - Immunization History Hx Tetanus Toxoid Vaccination: No Hx Influenza Vaccination: No Hx Pneumococcal Vaccination: No Review Of Systems Constitutional: Negative for: Fever, Chills Cardiovascular: Negative for: Chest Pain Respiratory: Negative for: Shortness of Breath Gastrointestinal: Negative for: Vomiting Psych: Negative for: Suicidal ideation, Other (homicidal ideation) Physical Exam - Physical Exam Appears: Non-toxic, No Acute Distress Skin: Warm Head: Atraumatic Eye(s): bilateral: Normal Inspection Oral Mucosa: Moist, Other (alcohol on breath) Neck: Supple Chest: Symmetrical Cardiovascular: Rhythm Regular Respiratory: No Rales, No Rhonchi, No Wheezing Gastrointestinal/Abdominal: Soft, No Tenderness, No Guarding, No Rebound Back: No CVA Tenderness, No Vertebral Tenderness Extremity: Normal ROM, No Pedal Edema Neurological/Psych: Oriented x3 ED Course And Treatment O2 Sat by Pulse Oximetry: 98 (RA) Pulse Ox Interpretation: Normal Reevaluation Time: 05:06 Reassessment Condition: Improved Disposition Counseled Patient/Family Regarding: Studies Performed, Diagnosis, Need For Followup - Disposition Referrals: [facility] [Outside] Disposition: HOME/ ROUTINE Disposition Time: 22:48 Condition: FAIR Instructions: Alcohol Abuse and Alcoholism (DC) Forms: [facility] (Swedish) - Clinical Impression Clinical Impression: Alcohol intoxication - Scribe Statement The provider has reviewed the documentation as recorded by the Lisa Carrillo Provider Attestation: All medical record entries made by the Lisa were at my direction and personally dictated by me. I have reviewed the chart and agree that the record accurately reflects my personal performance of the history, physical exam, medical decision making, and the department course for this patient. I have also personally directed, reviewed, and agree with the discharge instructions and disposition.
[2017-12-23 05:17] VITALS: BP 126/75; PULSE 82
== END 2017-12-23 05:17 | disposition home or self-care (01) ==
LOC: SUPCPDRO 21:59 → C.ER 21:59
DX: F10.129 Alcohol abuse with intoxication, unspecified (principal)